=== PATIENT | female | born 1990 | race Caucasian/White ===

== ENCOUNTER 2017-04-08 11:53 | Emergency (ER) | payer OTHER ==
[2017-04-08 13:42] LABS: Appearance,Urine Cloudy (Clear); Bacteria,Urine Rare /hpf; Bilirubin,Urine Negative (Negative); Glucose,Urine (UA) Negative (Negative); Ketones,Urine Negative (Negative); Leukocyte Esterase,Urine Negative (Negative); Mucus,Urine Rare /hpf; Nitrite,Urine Negative (Negative); Particle Count 6006; Protein,Urine Negative (Negative); RBC,Urine 1 /hpf (0-5); Specific Gravity,Urine 1.016 (1.001-1.035); Squamous Epithelial Cell,Urine 3 /hpf (0-4); UA Billing (MACRO vs. MICRO) MICRO; Urobilinogen,Urine <2.0 mg/dL (<2.0); WBC,Urine 1 /hpf (0-5)
--- NOTE | 2017-04-08 13:48 | ED ---
General Adult HPI - General Chief complaint: Abdominal Pain Stated complaint: test Time Seen by Provider: 04/08/17 13:00 Source: patient Mode of arrival: ambulatory Limitations: no limitations - History of Present Illness Initial comments: Patient is a 26yo male who presents to the emergency department requesting a test. Reports that her last menstrual cycle was in January. She reports she has a history of irregular menses for which she has previously been on oral contraceptive pills to help her regulate her cycle. She reports that due to insurance issues she has not had her oral contraceptive pills since January. The past week she's been experiencing breast tenderness, nausea and low pelvic cramping. She reports she took 5 tests at home [place] 4 of which were negative and one she thought may have set positive. She's been seen by an urgent care where she had a negative test, however given her symptoms advised her she needs to come to the emergency department for evaluation. Patient reports that her last Pap smear was last year with her primary care physician and was normal. She's never had an abnormal Pap smear never been treated for sexual transmitted infection. Never been . - Related Data Home Medications Medication Instructions Recorded Confirmed No Known Home Medications [No 04/08/17 04/08/17 Known Home Medications] Allergies Allergy/AdvReac Type Severity Reaction Status Date / Time No Known Allergies Allergy Verified 04/08/17 12:44 Review of Systems ROS Statement: Those systems with pertinent positive or pertinent negative responses have been documented in the HPI. ROS Other: All systems not noted in ROS Statement are negative. Constitutional: Denies: fever, chills, weakness, weight change Eyes: Denies: vision change Respiratory: Denies: cough, wheezes Cardiovascular: Denies: chest pain, palpitations Endocrine: Reports: fatigue Gastrointestinal: Reports: nausea. Denies: vomiting, diarrhea, constipation Genitourinary: Reports: abnormal menses. Denies: urgency, dysuria, frequency, hematuria, discharge Musculoskeletal: Denies: back pain Skin: Denies: rash, lesions Neurological: Denies: headache, weakness Psychiatric: Denies: anxiety Hematological/Lymphatic: Denies: easy bleeding, easy bruising Past Medical History Past Medical History: No Reported History History of Any Multi-Drug Resistant Organisms: None Reported Past Surgical History: No Surgical Hx Reported Past Psychological History: No Psychological Hx Reported Smoking Status: Current every day smoker Past Alcohol Use History: Occasional Past Drug Use History: None Reported General Exam Limitations: no limitations General appearance: alert, in no apparent distress Head exam: Present: atraumatic, normocephalic, normal inspection Eye exam: Present: normal appearance, PERRL, EOMI. Absent: scleral icterus, conjunctival injection, periorbital swelling ENT exam: Present: normal exam, mucous membranes moist Neck exam: Present: normal inspection. Absent: tenderness, meningismus, lymphadenopathy Respiratory exam: Present: normal lung sounds bilaterally. Absent: respiratory distress, wheezes, rales, rhonchi, stridor Cardiovascular Exam: Present: regular rate, normal rhythm, normal heart sounds. Absent: systolic murmur, diastolic murmur, rubs, gallop, clicks GI/Abdominal exam: Present: soft, normal bowel sounds. Absent: distended, tenderness, guarding, rebound, rigid Extremities exam: Present: normal inspection, full ROM, normal capillary refill. Absent: tenderness, pedal edema, joint swelling, calf tenderness Back exam: Present: normal inspection Neurological exam: Present: alert, oriented X3, CN II-XII intact Psychiatric exam: Present: normal affect, normal mood Skin exam: Present: warm, dry, intact, normal color. Absent: rash Course Vital Signs 04/08/17 04/08/17 12:01 14:10 Temperature 97.8 F 95.7 F L Pulse Rate 79 78 Respiratory 17 15 Rate Blood Pressure 165/111 149/107 O2 Sat by Pulse 99 100 Oximetry Medical Decision Making - Medical Decision Making She was seen and evaluated, history was obtained from the patient and her significant other at bedside. Despite multiple negative urine test patient has concern that she may be was advised by an urgent care that she needs a blood test for confirmatory testing UA and BHCG ordered urinanalysis with no signs of infection Serum beta hCG was negative These results were discussed with the patient and her significant other at bedside. I advised the patient that the symptoms she is experiencing are likely related to hormonal changes in her body due to her coming off of the control pill which she has been on for 2 years. I advised the patient that she needs to follow up with her primary care physician and or establish care with a aircraft seat upholsterer so that she can have consistent prescriptions for her control she reports due to insurance issues she has been on and off control intermittently for a number of years. She expressed concern that she does not currently have medical insurance, I advised her she can follow up at a clinic such as [facility] who can provide her a decreased priced control. Questions pertaining to care were answered to the best of my ability. Patient was discharged home with referral for follow-up with PCP and gynecology. - Lab Data Lab Results 04/08/17 04/08/17 Range/Units 12:16 12:16 HCG, Quant <2.4 mIU/mL Urine Color Yellow Urine Appearance Cloudy H (Clear) Urine pH 6.0 (5.0-8.0) Ur Specific [place] 1.016 (1.001-1.035) Urine Protein Negative (Negative) Urine Glucose (UA) Negative (Negative) Urine Ketones Negative (Negative) Urine Blood Trace H (Negative) Urine Nitrite Negative (Negative) Urine Bilirubin Negative (Negative) Urine Urobilinogen <2.0 (<2.0) mg/dL Ur Leukocyte Esterase Negative (Negative) Urine RBC 1 (0-5) /hpf Urine WBC 1 (0-5) /hpf Ur Squamous Epith Cells 3 (0-4) /hpf Urine Bacteria Rare H (None) /hpf Urine Mucus Rare H (None) /hpf Disposition Clinical Impression: Abnormal menstrual cycle Disposition: HOME SELF-CARE Condition: Good Referrals: Beatriz Jurado MD [Primary Care Provider] - 1-2 days Blossom Lim MD [STAFF PHYSICIAN] - 1-2 days Time of Disposition: 14:04
[2017-04-08 14:11] VITALS: BP 149/107; PULSE 78; RESP 15; TEMP 95.7
== END 2017-04-08 14:12 | disposition home or self-care (01) ==
LOC: EC 11:53
DX: N92.6 Irregular menstruation, unspecified (principal); F17.200 Nicotine dependence, unspecified, uncomplicated; Z32.02 Encounter for pregnancy test, result negative
CPT/HCPCS: 36415; 81001; 84702; 99284

== ENCOUNTER → 2017-07-11 | Outpatient (CLI) | payer OTHER ==
--- NOTE | 2017-07-11 07:59 | US ---
EXAMINATION TYPE: US pelvic complete DATE OF EXAM: 07/11/2017 COMPARISON: NONE CLINICAL HISTORY: 26-year-old female R10.2 Pelvic Pain. Nausea, pelvic pain, tender breasts, patient has not had cycle for 4 months but this is not unusual for her, negative tests, physical ex am by physician questioned enlarged uterus TECHNIQUE: TA FINDINGS: DIRECT MARKETING REPRESENTATIVE NOTES: *large body habitus Date of LMP: 4 months ago Uterus: Anteverted measuring 7.6 x 4.0 x 3.4 cm Endometrial Stripe: 0.8 cm, within normal limits. Right Ovary: 2.2 x 2.8 x 2.2 cm Left Ovary: 2.7 x 2.6 x 2.2 cm Both ovaries have an unremarkable appearance. No evident adnexal abnormality or cul-de-sac free fluid. IMPRESSION: Unremarkable transabdominal sonographic examination of the pelvis.
== END | disposition home or self-care (01) ==
LOC: RADUSWWP 06:46
PROVIDERS: ATTEND Obstetrics & Gynecology
DX: R10.2 Pelvic and perineal pain (principal)
CPT/HCPCS: 76856

== ENCOUNTER → 2023-06-30 | Outpatient (CLI) | payer OTHER ==
--- NOTE | 2023-06-30 18:31 | XR ---
EXAMINATION TYPE: XR lumbosacral spine 5 views DATE OF EXAM: 06/30/2023 Comparison: None Clinical History: 32-year-old female M54.50 LOW BACK PAIN, UNSPECIFIED Findings: Leftward rotary curvature upper lumbar spine. 5 lumbar type vertebral bodies. No pars interarticulari s defect. Vertebral body heights are preserved and alignment is maintained. Mild degenerative disc di sease in the visualized lower thoracic spine. 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 Mild degenerative disc disease lower thoracic spin e. No vertebral compression collapse or malalignment.
== END | disposition home or self-care (01) ==
LOC: RADXRMAIN 10:33
PROVIDERS: ATTEND Family Medicine
DX: M51.34 Other intervertebral disc degeneration, thoracic region (principal); M43.8X6 Other specified deforming dorsopathies, lumbar region
CPT/HCPCS: 72110